=== PATIENT | male | born 1960 | race Caucasian/White ===

== ENCOUNTER 2018-08-16 12:59 | Emergency (ER) | payer SELFPAY ==
[2017-03-21 13:21] VITALS: Wt 81.6 kg
[~2018-08-16 12:59] MED LIST: ALB6.7R INH; AMOX-559 PO; CALC-515 PO; CYCL10TA29 PO; DUONEB INH; FLU44R IH; LOR5/325 PO; MON10 PO
[2018-08-16 13:07] VITALS: BP_SYST 144
[2018-08-16] MEDS ORDERED: IBUPROFEN 600 MG TAB PO ONE (13:20)
[2018-08-16] MEDS ORDERED: APAP/HYDROCODONE 325/5 TAB PO ONE (13:20)
--- NOTE | 2018-08-16 13:24 | ER Report ---
History and Physical Time Seen By MD: 13:10 Hx. of Stated Complaint: fell at 1600 hours yesterday from standing on table, heard pop to R ankle, obvious edema. HPI/ROS CHIEF COMPLAINT: ankle pain HISTORY OF PRESENT ILLNESS: Patient was standing on nightstand approximately 2 feet off of concrete ground yesterday at 4 PM when he slipped, inverted right foot, and fell hitting the ground on his buttocks. Patient did not hit his head or lose consciousness. Patient states that he felt a pop on the outside of his ankle at this point and was unable to walk around. Patient eventually got into bed in his recliner and fell asleep. Yesterday he used Tylenol and ice for pain. This morning when he attempted to get up he had significant pain while attempting to bear weight and was unable to do so. He called a friend who picked him up and gave him a ride here. He now complains of severe right ankle pain. Patient does not have knee pain, new weakness, or other pain or injuries. He has multiple sclerosis but denies other medical problems. He admits to 1-2 drinks daily as well as ongoing tobacco use. REVIEW OF SYSTEMS: Respiratory: No cough, no dyspnea. Cardiovascular: No chest pain, no palpitations. Gastrointestinal: No vomiting, no abdominal pain. Musculoskeletal: No back pain. Ankle pain as above. C/o pain in buttocks but not concerned about this pain. Allergies: Coded Allergies: No Known Drug Allergies (Verified , 08/16/18) Home Meds Reported Medications Albuterol Sulfate (PROVENTIL HFA) 6.7 Gm Inh, 2 PUFF INH Q4-6H PRN for SHORTNESS OF BREATH, INH 03/20/17 Discontinued Reported Medications Calcium Carbonate (TUMS) 200 Mg Tab.chew, 200 MG PO PRN for HEARTBURN, TAB.CHEW 03/20/17 Discontinued Scripts Amoxicillin/Pot Clav 875-125 Mg Tab (AUGMENTIN 875-125 TABLET) 1 Each Tablet, 1 TAB PO BID, #14 TAB Prov:ROSHAN ELIZABETH DO 03/21/17 Hx Smoking: Yes (2 PPD) Smoking Status: Current: Every Day Smoker Hx Substance Use Disorder: No Hx Alcohol Use: Yes (30 PACK PER DAY TO A DAY AND A HALF) Constitutional Vital Sign - Last 24 Hours 08/16/18 13:07 Temp 99.0 Pulse 112 Resp 20 B/P (MAP) 144/ Pulse Ox 94 O2 Delivery Room Air Physical Exam General appearance: [alert no distress] Right ankle: There is moderate lateral and medial swelling. There is no obvious deformity to the ankle. There is moderate tenderness to the lateral malleolus. Ankle joint is stable and there is no tenderness over the achilles tendon. The foot is non-tender without swelling. Neurologic exam: The patient has normal sensation distal to the injury. Vascular exam: Normal pulses and capillary refill in the foot DIFFERENTIAL DIAGNOSIS: After history and physical exam differential diagnosis was considered for ankle injury including sprain, fracture, dislocation and soft tissue injury. Medical Decision Making EKG/Imaging Imaging X-ray: r ankle was obtained. I viewed the images myself on the PACS system. My interpretation of the images is: no acute fracture; osseous calcification . The radiologist interpretation had no clinically significant variation from this interpretation. ED Course/Re-evaluation ED Course Pt presents 1 d after r ankle injury; ED exam shows stable ankle (negative anterior drawer) and xray without acute fx (noted chronic osseous fragment; radiologist agrees). Given MS, pt not optimal candidate for crutches; will place in walking boot. Pt tolerates this; will d/c with NSAIDS, RICE. Decision to Disposition Date: Aug 16, 2018 Decision to Disposition Time: 13:55 Depart Departure Latest Vital Signs Vital Signs Date Time Temp Pulse Resp B/P (MAP) Pulse Ox O2 Delivery O2 Flow Rate FiO2 08/16/18 13:07 99.0 112 20 144/ 94 Room Air Impression: Primary Impression: SPRAIN OF UNSPECIFIED LIGAMENT OF RIGHT ANKLE, INIT ENCNTR Condition: Improved Disposition: HOME OR SELF-CARE Referrals: ROSHAN TAPIA MD (PCP) Patient Instructions: Ankle Sprain (ED) OSBALDO SANCHEZ MD Aug 16, 2018 13:24
--- NOTE | 2018-08-16 13:49 | RADIOLOGY IMAGING REPORT ---
FACILITY: [facility] PATIENT NAME: Adrian Reilly : 1960 MR: [id number] V: [id number] EXAM DATE: ORDERING PHYSICIAN: OSBALDO SANCHEZ TECHNOLOGIST: Location: [facility] - [place] Patient: Adrian Reilly : 1960 Visit/Account:[id number] Date of Sevice: 08/16/2018 EXAMINATION: Right ankle, 3 views 08/16/2018 1:18 PM HISTORY: inversion injury, not weight bearing COMPARISON: None FINDINGS: Lateral soft tissue swelling. Chronic rounded corticated ossific focus along the tip of the fibula. No acute bony injury evident. Mild degenerative spurring along the tibiotalar articulation. Minimal plantar calcaneal spurring. There is chronic dorsal spurring along the neck of the talus. Ank le mortise is well preserved. Talar dome has smooth contours. IMPRESSION: Lateral soft tissue swelling. No acute bony injury. Report Dictated By: Ted Sanchez MD at 08/16/2018 1:44 PM Report E-Signed By: Ted Sanchez MD at 08/16/2018 1:46 PM WSN:[email or web address]
== END 2018-08-16 14:25 | disposition home or self-care (01) ==
LOC: ER 13:01
DX: S93.401A Sprain of unspecified ligament of right ankle, initial encounter (principal)
CPT/HCPCS: 99283

== ENCOUNTER → 2019-05-26 | Outpatient (CLI) | payer OTHER ==
[2017-03-21 13:21] VITALS: BMI 25.3
[2019-05-26 11:15] LABS: PLATELET COUNT, AUTOMATED 247 K/uL (150-450)
[2019-05-26 11:41] LABS: LDL CHOLESTEROL 132 mg/dl
== END ==
LOC: LAB 11:07
PROVIDERS: ATTEND Internal Medicine
DX: H53.2 Diplopia (principal); G24.9 Dystonia, unspecified; R51 Headache; R20.0 Anesthesia of skin
CPT/HCPCS: 36415; 81001; 82040; 82247; 82310; 82374; 82435; 82465; 82565; 82607; 82746; 82947; 83718; 84075; 84132; 84153; 84155; 84295; 84443; 84450; 84460; 84478; 84520; 85025

== ENCOUNTER → 2019-06-30 | Outpatient (CLI) | payer OTHER ==
[2017-03-21 13:21] VITALS: BMI 25.3
[~2019-06-30] MED LIST changes: +GADOBENATE 529MG/1ML 15ML VIAL IVP ONE; +TAMS0.4C25 PO
--- NOTE | 2019-06-30 10:33 | RADIOLOGY IMAGING REPORT ---
FACILITY: [facility] PATIENT NAME: Adrian Reilly : 1960 MR: [id number] V: [id number] EXAM DATE: ORDERING PHYSICIAN: ANTHONY NEGRO TECHNOLOGIST: Location: [facility] - [place] Patient: Adrian Reilly : 1960 Visit/Account:[id number] Date of Sevice: 06/30/2019 Study: MRI of the brain without and with gadolinium contrast. Indication: Diplopia, dyskinesia, headaches, dysesthesias, optic neuritis Comparison study: March 21, 2017 Contrast used: 15 mL MultiHance gadolinium contrast Technique: Multiplanar MRI sequences were obtained through the brain before and after the administrat ion of gadolinium contrast. The examination demonstrates no evidence of acute intracranial hemorrhage. There is no evidence of ex tra-axial collection or hydrocephalus. There are small areas of high T2-weighted signal present within the left frontal white matter. These are not significantly changed from the previous study. These findings are nonspecific and may represe nt an ischemic or demyelinating process. There is no abnormal contrast enhancement associated with th evert findings. The pituitary gland is unremarkable in appearance. There is no evidence of abnormality of the pineal gland. A diffusion-weighted sequence was performed and demonstrates no evidence of active ischemia. There is no evidence of active infarct The orbits are unremarkable. There is near total opacification of the right maxillary sinus. This is not significantly changed fro m the previous study. Following the administration of gadolinium contrast, there is no abnormal intracranial contrast enhan cement. IMPRESSION: No change from the previous study. There is no abnormal contrast enhancement identified w ithin the brain parenchyma. Report Dictated By: Ion Zhao at 06/30/2019 10:12 AM Report E-Signed By: Ion Zhao at 06/30/2019 10:18 AM WSN:[email or web address]
== END ==
LOC: MRI 01:15
PROVIDERS: ATTEND Internal Medicine
DX: H53.2 Diplopia (principal); G24.9 Dystonia, unspecified; R51 Headache; R20.0 Anesthesia of skin; H46.9 Unspecified optic neuritis
CPT/HCPCS: 70553; A9577

== ENCOUNTER → 2019-07-02 | Outpatient (CLI) | payer OTHER ==
[2017-03-21 13:21] VITALS: BMI 25.3
--- NOTE | 2019-07-02 17:56 | RADIOLOGY IMAGING REPORT ---
FACILITY: [facility] PATIENT NAME: Adrian Reilly : 1960 MR: [id number] V: [id number] EXAM DATE: ORDERING PHYSICIAN: ANTHONY NEGRO TECHNOLOGIST: Location: [facility] Patient: Adrian Reilly : 1960 Visit/Account:[id number] Date of Sevice: 07/02/2019 EXAMINATION: MRI cervical spine without IV contrast MRI cervical spine with IV contrast HISTORY: Left arm and leg numbness and tingling COMPARISON: None. TECHNIQUE: Multi-planar, multi-sequence cervical spine MRI was performed before and after IV contras t. CONTRAST: 15 mL of IV MultiHance FINDINGS: Alignment: Normal. Vertebral marrow signal: Edema in the C3 and C4 vertebral bodies, likely related to degenerative grullon ges fatty changes in the C5 and C6 vertebral bodies also likely degenerative. Cranio-cervical junction: Negative. Visualized posterior fossa: Negative. Soft tissues: Negative. Cervical cord: Negative. Enhancement pattern: There is enhancement and inflammatory changes about the left C3-4 facets with a facet effusion. Disc Spaces: C1-2: Negative. C2-3: Negative. C3-4: Disc endplate degeneration with disc osteophyte and bilateral facet arthrosis. This results in moderate spinal canal stenosis and at least moderate bilateral foraminal stenosis. C4-5: Negative. C5-6: Disc endplate degeneration with disc osteophyte results in mild spinal canal and bilateral fora theresa stenosis. C6-7: Negative. C7-T1: Negative. Upper thoracic spine: Negative. IMPRESSION: 1. Inflammatory changes about the left C3 and C4 facets with facet effusion. These changes may be s imply degenerative however infection not entirely excluded. 2. Degenerative changes greatest at the C3-4 level. Report Dictated By: COLTON MAYORGA at 07/02/2019 5:39 PM Report E-Signed By: COLTON MAYORGA at 07/02/2019 5:48 PM WSN:[email or web address]
== END ==
LOC: MRI 03:59
PROVIDERS: ATTEND Internal Medicine
DX: H53.2 Diplopia (principal); G24.9 Dystonia, unspecified; R51 Headache; H46.9 Unspecified optic neuritis; R20.0 Anesthesia of skin
CPT/HCPCS: 72156; A9577